=== PATIENT | male | born 1970 | race Two or more races ===

== ENCOUNTER 2024-04-14 13:05 | Inpatient (IN) | payer MEDICARE, OTHER ==
[~2024-04-14] VITALS: Ht 162.6 cm; Wt 76.2 kg
[2024-04-14 13:59] LABS: BASOPHILS % (AUTO) 0.7 % (0.0-2.0); EOSINOPHILS # (AUTO) 0.2 K/uL (0.0-0.7); EOSINOPHILS % (AUTO) 2.5 % (0.0-7.0); HEMATOCRIT 42.7 % (36.7-47.1); HEMOGLOBIN 14.9 g/dL (12.5-16.3); LYMPHOCYTES # (AUTO) 3.4 K/uL (0.8-4.8); LYMPHOCYTES % (AUTO) 45.4 % (20.5-51.5); MEAN CORPUSCULAR HEMOGLOBIN 32.2 uug (23.8-33.4); MEAN CORPUSCULAR HGB CONC 35 g/dL (32.5-36.3); MEAN CORPUSCULAR VOLUME 92.5 fL (73.0-96.2); MONOCYTES # (AUTO) 0.7 K/uL (0.1-1.30); NEUTROPHILS # (AUTO) 3.1 K/uL (1.8-8.9); NEUTROPHILS % (AUTO) 41.4 % (38.5-71.5); PLATELET COUNT (AUTO) 176 K/uL (152-348); RED BLOOD CELL COUNT(AUTO) 4.62 MIL/uL (4.06-5.63); RED CELL DISTRIBUTION WIDTH 13.7 % (12.1-16.2); WHITE BLOOD COUNT (AUTO) 7.4 K/uL (3.6-10.2)
[2024-04-14 14:05] LABS: DIFFERENTIAL COMMENT 1
[2024-04-14 14:11] LABS: CALCIUM 8.8 mg/dL (8.5-10.1); CARBON DIOXIDE 24 mmol/L (21-32); CHLORIDE 102 mmol/L (98-107); CREATININE 0.6 mg/dL (0.6-1.3); GLUCOSE 84 mg/dL (74-106); POTASSIUM 4.1 mmol/L (3.5-5.1); SODIUM SERUM 135 mmol/L (136-145); UREA NITROGEN, BLOOD 4 mg/dL (7-18)
[2024-04-14 14:12] LABS: *BILIRUBIN,URIN NEGATIVE (NEGATIVE); *CLARITY,URINE CLEAR (CLEAR); *COLOR,URINE YELLOW (YELLOW); *KETONES,URINE NEGATIVE (NEGATIVE); *PROTEIN,URINE NEGATIVE (NEGATIVE); *UROBILINOGEN,URINE 0.2 E.U./dl (NORMAL); LEUKOCYTE ESTERASE ,URINE NEGATIVE (NEGATIVE); NITRITE, URINE NEGATIVE (NEGATIVE); UGLUCOSE NEGATIVE (NEGATIVE)
[2024-04-14 14:14] LABS: *BLOOD, URINE TRACE (NEGATIVE)
[2024-04-14 14:14] LABS: ETHANOL < 3 MG/DL (0-10)
[2024-04-14 14:18] LABS: ACETAMINOPHEN < 2.0 ug/mL (10-30); ALANINE AMINOTRANSFERASE 14 U/L (16-63); ALKALINE PHOSPHATASE 70 U/L (50-136); ASPARTATE AMINOTRANSFERASE 6 U/L (15-37); BILIRUBIN,DIRECT 0.1 mg/dL (0.0-0.2); BILIRUBIN,TOTAL 0.3 mg/dL (0.2-1.0)
[2024-04-14 14:24] LABS: *AMPHETAMINE, URINE NEGATIVE (NEGATIVE); *BARBITURATE, URINE NEGATIVE (NEGATIVE); *BENZODIAZEPINE, URINE POSITIVE (NEGATIVE); *CANNABINOID, URINE NEGATIVE (NEGATIVE); *COCCAINE, URINE NEGATIVE (NEGATIVE); *OPIATE, URINE NEGATIVE (NEGATIVE); *PHENCYCLIDINE SCREEN,URINE NEGATIVE (NEGATIVE); FENTANYL, URINE NEGATIVE (NEGATIVE)
[2024-04-14 14:46] LABS: BACTERIA,URINE RARE /HPF (NONE SEEN); SQUAMOUS EPITHELIAL CELL,UR FEW /HPF (NONE SEEN); WBC,URINE 0-3 /HPF (0-3)
[2024-04-14] MEDS ORDERED: MYLANTA PO (17:58)
[2024-04-14] MEDS ORDERED: DIVA500T54 PO (17:58)
[2024-04-14] MEDS ORDERED: POLY15DR31 OP (17:58)
[2024-04-14] MEDS ORDERED: DIAZ5TAB4 PO (17:58)
[2024-04-14] MEDS ORDERED: MAGN400O6 PO (17:58)
[2024-04-14] MEDS ORDERED: THIA100T74 PO (17:58)
[2024-04-14] MEDS ORDERED: PANT40TA49 PO (17:58)
[2024-04-14] MEDS ORDERED: NA P230E RC (17:58)
[2024-04-14] MEDS ORDERED: ASCO500C18 PO (17:58)
[2024-04-14] MEDS ORDERED: OLAN10TA73 PO (17:58)
[2024-04-14] MEDS ORDERED: DIAZ1KIT6 RC (17:58)
[2024-04-14] MEDS ORDERED: ACET-2154 PO (17:58)
[2024-04-14] MEDS ORDERED: FOLI1TAB27 PO (17:58)
[2024-04-14] MEDS ORDERED: VITA-287 PO (17:58)
[2024-04-14] MEDS ORDERED: CITA40TA11 PO (17:58)
[2024-04-14] MEDS ORDERED: DOCU100T2 PO (17:58)
[2024-04-14] MEDS ORDERED: LORA0.5T48 PO (17:58)
[2024-04-14] MEDS ORDERED: BISA10SU11 RC (17:58)
[2024-04-14] MEDS ORDERED: ASPI81TA31 PO (17:58)
[2024-04-14] MEDS ORDERED: ATOR20TA PO (17:58)
[2024-04-14] MEDS ORDERED: MULT-213 PO (17:58)
[2024-04-14 20:06] VITALS: BP 96/65; TEMP 97.6; O2SAT 95
[2024-04-14] MEDS: BLOOD SUGAR DIAGNOSTIC 1 EACH STRIP VI ONE (20:30)
[2024-04-14] MEDS ORDERED: MAG HYDROX/AL HYDROX/SIMETH 30 ML LIQUID UDC PO PRN (20:30)
[2024-04-14] MEDS ORDERED: TEMAZEPAM 7.5 MG CAPSULE PO PRN ×2 (20:30)
[2024-04-14] MEDS ORDERED: LORAZEPAM 0.5 MG TABLET PO PRN (20:30)
[2024-04-14] MEDS ORDERED: LORAZEPAM 1 MG TABLET PO PRN (20:30)
[2024-04-14] MEDS ORDERED: MAGNESIUM HYDROXIDE 30 ML LIQUID UDC PO PRN (20:30)
[2024-04-15 08:14] VITALS: BP 99/46; TEMP 97.9; O2SAT 97
[2024-04-15 08:35] LABS: ALBUMIN 3.8 g/dL (3.4-5.0); BILIRUBIN,TOTAL 0.4 mg/dL (0.2-1.0); CALCIUM 8.9 mg/dL (8.5-10.1); CREATININE 0.8 mg/dL (0.6-1.3); POTASSIUM 4.3 mmol/L (3.5-5.1); TOTAL PROTEIN, SERUM 6.8 g/dL (6.4-8.2)
[2024-04-15] MEDS: DIVALPROEX 500 MG TABLET.DR PO SCH (13:00)
[2024-04-15 13:16] LABS: THYROID STIMULATING HORMONE 0.547 mIU/mL (0.358-3.740)
[2024-04-15 16:55] VITALS: BP 93/45; TEMP 98; O2SAT 97
[2024-04-15] MEDS ORDERED: POLYVINYL ALCOHOL OPHT DROPS 15 ML BOTTLE EACHEYE PRN (17:30)
[2024-04-15] MEDS ORDERED: BISACODYL 10 MG SUPP.RECT RC PRN (17:30)
[2024-04-15] MEDS: risperiDONE 1 MG TABLET PO SCH (17:57)
[2024-04-15] MEDS: OLANZAPINE 2.5 MG TABLET PO SCH (20:36)
[2024-04-15] MEDS: DOCUSATE SODIUM 100 MG CAPSULE PO SCH (20:36)
[2024-04-15] MEDS: ATORVASTATIN 20 MG TABLET PO SCH (20:36)
[2024-04-15 21:28] VITALS: BP 90/50; TEMP 98; O2SAT 92
[2024-04-16 08:09] VITALS: BP 97/60; TEMP 97.9; O2SAT 97
[2024-04-16] MEDS: VITAMIN B COMPLEX 1 TABLET PO SCH (08:27)
[2024-04-16] MEDS: THIAMINE HCL 100 MG TABLET PO SCH (08:27)
[2024-04-16] MEDS: ASPIRIN 81 MG TAB.CHEW PO SCH (08:27)
[2024-04-16] MEDS: ASCORBIC ACID 500 MG TABLET PO SCH (08:28)
[2024-04-16] MEDS: MULTIVITAMINS,THERAPEUTIC TABLET PO SCH (08:28)
[2024-04-16] MEDS: PANTOPRAZOLE SODIUM 40 MG TABLET.DR PO SCH (08:28)
[2024-04-16] MEDS: FOLIC ACID 1 MG TABLET PO SCH (08:28)
[2024-04-16] MEDS: OLANZAPINE 10 MG VIAL IM ONE (11:35)
[2024-04-16 15:57] LABS: THYROID STIMULATING HORMONE 1.106 mIU/mL (0.358-3.740)
[2024-04-16] MEDS: risperiDONE 1 MG TABLET PO SCH (16:16)
[2024-04-16 16:35] VITALS: BP 96/60; TEMP 98; O2SAT 97
[2024-04-16 19:51] VITALS: BP 101/61; TEMP 97.9; O2SAT 96
[2024-04-16] MEDS: OLANZAPINE 2.5 MG TABLET PO SCH (20:18)
[2024-04-17] MEDS: LORAZEPAM 0.5 MG TABLET PO PRN (07:43)
[2024-04-17 08:06] VITALS: BP 99/61; TEMP 98.4; O2SAT 98
[2024-04-17] MEDS: risperiDONE 1 MG TABLET PO SCH (12:38)
[2024-04-17] MEDS: ACETAMINOPHEN 325 MG TABLET PO PRN (12:38)
[2024-04-17 16:24] VITALS: BP 113/75; TEMP 98.1; O2SAT 98
[2024-04-17 20:10] VITALS: BP 104/69; TEMP 98.1; O2SAT 96
[2024-04-18 08:27] VITALS: BP 115/64; TEMP 98; O2SAT 100
[2024-04-18] MEDS: LORAZEPAM 0.5 MG TABLET PO PRN (11:36)
[2024-04-18] MEDS: risperiDONE 2 MG TABLET PO SCH (12:08)
[2024-04-18] MEDS: NICOTINE 21 MG/24HR PATCH TD SCH (13:48)
[2024-04-18 15:02] VITALS: BP 110/60; TEMP 98.2; O2SAT 98
[2024-04-18 19:52] VITALS: BP 112/64; TEMP 98.1; O2SAT 96
[2024-04-19 07:41] VITALS: BP 107/75; TEMP 98; O2SAT 98
[2024-04-19 15:58] VITALS: BP 102/62; TEMP 98; O2SAT 99
[2024-04-19 20:00] VITALS: BP 112/76; TEMP 97.7; O2SAT 97
[2024-04-20] MEDS: TEMAZEPAM 7.5 MG CAPSULE PO PRN (01:48)
[2024-04-20 07:52] VITALS: BP 103/67; TEMP 98; O2SAT 98
[2024-04-20] MEDS: FENOFIBRATE NANOCRYSTALLIZED 48 MG TABLET PO SCH (09:01)
[2024-04-20 15:28] VITALS: BP 108/78; TEMP 97.6; O2SAT 96
[2024-04-20 20:00] VITALS: BP 106/53; TEMP 98.7; O2SAT 96
[2024-04-21 07:49] VITALS: BP 94/59; TEMP 98; O2SAT 99
[2024-04-21 07:50] LABS: MAGNESIUM 2.1 mg/dL (1.8-2.4)
[2024-04-21] MEDS: LACTULOSE 20 G/30 ML LIQUID UDC PO SCH (10:48)
[2024-04-21 15:40] VITALS: BP 112/77; TEMP 97.8; O2SAT 94
[2024-04-21 19:50] VITALS: BP 94/62; TEMP 97.8; O2SAT 95
[2024-04-22 07:42] VITALS: BP 97/75; TEMP 98; O2SAT 99
[2024-04-22] MEDS: OLANZAPINE 10 MG VIAL IM ONE (08:34)
[2024-04-22 10:30] VITALS: BP 113/73; TEMP 97.9; O2SAT 99
[2024-04-22] MEDS: diphenhydrAMINE 50 MG/1 ML VIAL IM ONE (10:31)
[2024-04-22] MEDS: HALOPERIDOL LACTATE 5 MG/1 ML VIAL IM ONE (10:32)
[2024-04-22 13:40] VITALS: BP 92/59; TEMP 98.6; O2SAT 96
[2024-04-22 16:14] VITALS: BP 108/73; TEMP 98.6; O2SAT 96
[2024-04-22] MEDS: HALOPERIDOL 5 MG TABLET PO SCH (16:46)
[2024-04-22] MEDS: diphenhydrAMINE 25 MG CAP PO SCH (16:47)
[2024-04-22] MEDS ORDERED: diphenhydrAMINE 25 MG/10 ML UDC PO SCH (17:00)
[2024-04-22 19:46] VITALS: BP 109/46; TEMP 98.6; O2SAT 96
[2024-04-22] MEDS: risperiDONE 1 MG TABLET PO SCH (21:13)
[2024-04-23 07:55] VITALS: BP 131/53; TEMP 98.6; O2SAT 98
[2024-04-23 08:36] LABS: CREATININE 0.8 mg/dL (0.6-1.3); MAGNESIUM 2.1 mg/dL (1.8-2.4); POTASSIUM 4.6 mmol/L (3.5-5.1)
[2024-04-23 15:27] VITALS: BP 105/70; TEMP 98; O2SAT 99
[2024-04-23 20:04] VITALS: BP 101/71; TEMP 98.1; O2SAT 96
[2024-04-24 08:02] VITALS: BP 108/72; TEMP 97.8; O2SAT 98
[2024-04-24] MEDS ORDERED: LACTULOSE 20 G/30 ML LIQUID UDC PO PRN (10:15)
[2024-04-24 15:52] VITALS: BP 106/83; TEMP 98.2; O2SAT 97
[2024-04-24] MEDS: risperiDONE 0.5 MG TABLET PO SCH (16:39)
[2024-04-24] MEDS: HALOPERIDOL 1 MG TABLET PO SCH (16:40)
[2024-04-24] MEDS ORDERED: HALOPERIDOL 2 MG TABLET PO SCH (17:00)
[2024-04-24 19:48] VITALS: BP 111/76; TEMP 98.1; O2SAT 96
[2024-04-25 07:42] VITALS: BP 108/73; TEMP 98; O2SAT 98
[2024-04-25] MEDS: NICOTINE 14 MG/24HR PATCH TD SCH (08:16)
[2024-04-25] MEDS ORDERED: NICOTINE 21 MG/24HR PATCH TD SCH (09:00)
[2024-04-25 15:13] VITALS: BP 100/65; TEMP 97.8; O2SAT 98
[2024-04-25] MEDS: risperiDONE 1 MG TABLET PO SCH (17:10)
[2024-04-25 19:47] VITALS: BP 106/68; TEMP 98.1; O2SAT 96
[2024-04-25] MEDS: risperiDONE 2 MG TABLET PO SCH (20:21)
[2024-04-26 08:10] VITALS: BP 107/49; TEMP 98.2; O2SAT 99
[2024-04-26 08:41] LABS: AMMONIA 16 umol/L (11-32)
[2024-04-26 08:52] LABS: ALANINE AMINOTRANSFERASE 11 U/L (16-63); ALBUMIN 3.6 g/dL (3.4-5.0); ALKALINE PHOSPHATASE 65 U/L (50-136); ASPARTATE AMINOTRANSFERASE < 5 U/L (15-37); BILIRUBIN,TOTAL 0.4 mg/dL (0.2-1.0); CALCIUM 8.6 mg/dL (8.5-10.1); CARBON DIOXIDE 28 mmol/L (21-32); CHLORIDE 100 mmol/L (98-107); CREATININE 0.8 mg/dL (0.6-1.3); GLUCOSE 86 mg/dL (74-106); POTASSIUM 4.4 mmol/L (3.5-5.1); SODIUM SERUM 136 mmol/L (136-145); TOTAL PROTEIN, SERUM 6.6 g/dL (6.4-8.2); UREA NITROGEN, BLOOD 9 mg/dL (7-18); VALPROIC ACID 42 ug/mL (50-100)
[2024-04-26] MEDS: DIVALPROEX 500 MG TABLET.DR PO SCH (13:03)
[2024-04-26 15:15] VITALS: BP 116/68; TEMP 97.8; O2SAT 98
[2024-04-26] MEDS: HALOPERIDOL 5 MG TABLET PO SCH (16:14)
[2024-04-26] MEDS ORDERED: HALOPERIDOL 1 MG TABLET PO SCH (17:00)
[2024-04-26 20:00] VITALS: BP 103/68; TEMP 97.9; O2SAT 97
[2024-04-26] MEDS: LORAZEPAM 1 MG TABLET PO SCH (20:58)
[2024-04-27 08:13] VITALS: BP 98/62; TEMP 98; O2SAT 98
[2024-04-27 15:32] VITALS: BP 120/76; TEMP 98; O2SAT 100
[2024-04-27 20:00] VITALS: BP 102/66; TEMP 97.6; O2SAT 96
[2024-04-28 08:07] VITALS: BP 115/74; TEMP 98; O2SAT 98
[2024-04-28 15:04] VITALS: BP 109/71; TEMP 98; O2SAT 98
[2024-04-28 20:00] VITALS: BP 102/63; TEMP 98.6; O2SAT 96
[2024-04-29 07:51] VITALS: BP 109/74; TEMP 98.5; O2SAT 98
[2024-04-29 16:25] VITALS: BP 109/67; TEMP 98.4; O2SAT 98
[2024-04-29 20:00] VITALS: BP 103/62; TEMP 97.9; O2SAT 95
[2024-04-30 08:29] VITALS: BP 96/63; TEMP 97.9; O2SAT 97
[2024-04-30 08:53] LABS: BASOPHILS % (AUTO) 0.9 % (0.0-2.0); EOSINOPHILS # (AUTO) 0.1 K/uL (0.0-0.7); EOSINOPHILS % (AUTO) 1.8 % (0.0-7.0); HEMOGLOBIN 14.2 g/dL (12.5-16.3); LYMPHOCYTES # (AUTO) 2.7 K/uL (0.8-4.8); LYMPHOCYTES % (AUTO) 50.1 % (20.5-51.5); MEAN CORPUSCULAR HGB CONC 35 g/dL (32.5-36.3); MEAN CORPUSCULAR VOLUME 92.4 fL (73.0-96.2); MONOCYTES # (AUTO) 0.5 K/uL (0.1-1.30); MONOCYTES % (AUTO) 8.4 % (0.0-11.0); NEUTROPHILS # (AUTO) 2.1 K/uL (1.8-8.9); NEUTROPHILS % (AUTO) 38.8 % (38.5-71.5); PLATELET COUNT (AUTO) 181 K/uL (152-348); RED BLOOD CELL COUNT(AUTO) 4.44 MIL/uL (4.06-5.63); RED CELL DISTRIBUTION WIDTH 13.9 % (12.1-16.2); WHITE BLOOD COUNT (AUTO) 5.4 K/uL (3.6-10.2)
[2024-04-30 09:18] LABS: DIFFERENTIAL COMMENT 1
[2024-04-30 16:26] VITALS: BP 118/68; TEMP 98; O2SAT 97
[2024-04-30 21:33] VITALS: BP 104/70; TEMP 98; O2SAT 98
[2024-05-01 08:34] VITALS: BP 108/61; TEMP 98.4; O2SAT 98
== END 2024-05-01 12:45 | DRG 885 ==
LOC: ER 13:05 → GPS 17:40
PROVIDERS: ADMIT Psychiatry & Neurology Psychosomatic Medicine; ATTEND Nurse Practitioner Acute Care
DX: F20.9 Schizophrenia, unspecified (principal); D68.59 Other primary thrombophilia; R45.851 Suicidal ideations; H54.8 Legal blindness, as defined in USA; F17.210 Nicotine dependence, cigarettes, uncomplicated; R45.81 Low self-esteem; X83.8XXS Intentional self-harm by other specified means, sequela; E66.9 Obesity, unspecified; Z79.82 Long term (current) use of aspirin; Z79.899 Other long term (current) drug therapy; Z74.09 Other reduced mobility; E78.1 Pure hyperglyceridemia; J34.89 Other specified disorders of nose and nasal sinuses; R47.1 Dysarthria and anarthria; R94.8 Abnormal results of function studies of other organs and systems; Z62.810 Personal history of physical and sexual abuse in childhood; F41.9 Anxiety disorder, unspecified; F39 Unspecified mood [affective] disorder; F43.10 Post-traumatic stress disorder, unspecified; R41.9 Unspecified symptoms and signs involving cognitive functions and awareness
CPT/HCPCS: 36415; 70450; 70480; 80164; 83735; 83921; 84443; 85025; 93005; G0480; J1200; J1630; J2358; Q0163